=== PATIENT | female | born 1960 | race African-American/Black ===

== ENCOUNTER 2019-04-28 07:20 | Emergency (ER) | payer OTHER ==
[~2019-04-28] VITALS: Ht 175.3 cm; Wt 63.5 kg
[2019-04-28] MEDS ORDERED: TEGRETOL200 MG PO (07:24)
--- NOTE | 2019-04-28 07:35 | NUR ---
ED Nurse Note:pt. was BIBA from home qfter seizure
--- NOTE | 2019-04-28 07:40 | NUR ---
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
[2019-04-28] MEDS ORDERED: carBAMazepine 200mg tab ORAL ONE ×2 (07:45→08:45)
--- NOTE | 2019-04-28 07:57 | NUR ---
blood sent to labs and meds given
[2019-04-28 08:05] LABS: HEMOGLOBIN 12.1 G/DL (12.0-16.0); MEAN CORPUSCULAR VOLUME 92 FL (80-99); PLATELET COUNT 152 K/UL (150-450); RED BLOOD COUNT 3.92 M/UL (4.20-5.40); RED CELL DISTRIBUTION WIDTH 11.6 % (11.6-14.8)
[2019-04-28 08:09] VITALS: BP 132/89
--- NOTE | 2019-04-28 08:22 | Emergency Room Report ---
History of Present Illness General Chief Complaint: Seizure Source: Patient, EMS Present Illness HPI 58-year-old female presents ED status post seizure. Witnessed seizure at home while in bed this morning. Lasted for a few seconds then resolved. No reported head injury. Family called 911. Patient is postictal but answering questions. History of seizures. Takes Tegretol. States that she may have missed her dose last night. Denies alcohol or drug use. Denies fevers or chills. Denies headache. Denies neck stiffness. No other aggravating relieving factors. Denies any other associated symptoms Allergies: Coded Allergies: No Known Allergies (Unverified , 04/28/19) Patient History Past Medical History: seizures Past Surgical History: none Pertinent Family History: none Social History: Denies: smoking, alcohol use, drug use Now: No Immunizations: UTD Reviewed Nursing Documentation: PMH: Agreed; PSxH: Agreed Nursing Documentation-PMH Past Medical History: No History, Except For Hx Seizures: Yes Review of Systems All Other Systems: negative except mentioned in HPI Physical Exam Vital Signs Date Time Temp Pulse Resp B/P (MAP) Pulse Ox O2 Delivery O2 Flow Rate FiO2 04/28/19 07:16 98.4 107 18 132/89 (103) 99 Room Air Sp02 EP Interpretation: reviewed, normal General Appearance: no apparent distress, GCS 15, non-toxic, Postictal Head: normocephalic, atraumatic Eyes: bilateral eye normal inspection, bilateral eye PERRL ENT: hearing grossly normal, normal pharynx, no angioedema, normal voice Neck: full range of motion, supple/symm/no masses Respiratory: chest non-tender, lungs clear, normal breath sounds, speaking full sentences Cardiovascular #1: regular rate, rhythm, no edema Cardiovascular #2: 2+ carotid (R), 2+ carotid (L), 2+ radial (R), 2+ radial (L) , 2+ dorsalis pedis (R), 2+ dorsalis pedis (L) Gastrointestinal: normal bowel sounds, non tender, soft, non-distended, no guarding, no rebound Rectal: deferred Genitourinary: normal inspection, no CVA tenderness Musculoskeletal: back normal, gait/station normal, normal range of motion, non- tender Neurologic: alert, oriented x3, responsive, motor strength/tone normal, sensory intact, speech normal Psychiatric: judgement/insight normal, memory normal, mood/affect normal, no suicidal/homicidal ideation Reflexes: 3+ bicep (R), 3+ bicep (L), 3+ tricep (R), 3+ tricep (L), 3+ knee (R) , 3+ knee (L) Skin: normal color, no rash, warm/dry, well hydrated Lymphatic: no adenopathy Medical Decision Making Diagnostic Impression: Primary Impression: Seizure disorder Additional Impression: Seizure secondary to subtherapeutic anticonvulsant medication ER Course Hospital Course 58-year-old F presents to ED status post seizure. Differential diagnosis includes- breakthrough seizure, alcohol abuse, noncompliance with medication Clinical course Patient placed on stretcher. Initial history and physical I ordered labs, IV fluids Labs-electrolytes okay, no leukocytosis, hemoglobin/hematocrit stable. tegretol level subtherapeutic given loading dose of tegretol here in ED Patient allowed to rest is now awake alert oriented x3. ambulating without difficulty. Family is at bedside and can take patient home. discussed findings with patient. Discussed importance of compliance with her medications. Safe for discharge with close outpatient follow-up. States she has a PMD She no longer drives and is driven by her mother. Diagnosis - seizure disorder, subtherapeutic anticonvulsant medication stable and discharged to home. take your medications as directed. Followup with PMD. Return to ED if symptoms recur or worsen Labs Test 04/28/19 07:30 White Blood Count 3.0 K/UL (4.8-10.8) Red Blood Count 3.92 M/UL (4.20-5.40) Hemoglobin 12.1 G/DL (12.0-16.0) Hematocrit 36.0 % (37.0-47.0) Mean Corpuscular Volume 92 FL (80-99) Mean Corpuscular Hemoglobin 30.8 PG (27.0-31.0) Mean Corpuscular Hemoglobin Concent 33.5 G/DL (32.0-36.0) Red Cell Distribution Width 11.6 % (11.6-14.8) Platelet Count 152 K/UL (150-450) Mean Platelet Volume 6.3 FL (6.5-10.1) Neutrophils (%) (Auto) % (45.0-75.0) Lymphocytes (%) (Auto) % (20.0-45.0) Monocytes (%) (Auto) % (1.0-10.0) Eosinophils (%) (Auto) % (0.0-3.0) Basophils (%) (Auto) % (0.0-2.0) Differential Total Cells Counted 100 Neutrophils % (Manual) 41 % (45-75) Lymphocytes % (Manual) 45 % (20-45) Monocytes % (Manual) 7 % (1-10) Eosinophils % (Manual) 3 % (0-3) Basophils % (Manual) 4 % (0-2) Band Neutrophils 0 % (0-8) Platelet Estimate Adequate Platelet Morphology Normal Red Blood Cell Morphology Normal Sodium Level 145 MMOL/L (136-145) Potassium Level 3.0 MMOL/L (3.5-5.1) Chloride Level 114 MMOL/L (98-107) Carbon Dioxide Level 20 MMOL/L (21-32) Anion Gap 11 mmol/L (5-15) Blood Urea Nitrogen 7 mg/dL (7-18) Creatinine 0.8 MG/DL (0.55-1.30) Estimat Glomerular Filtration Rate > 60 mL/min (>60) Glucose Level 78 MG/DL (74-106) Calcium Level 6.7 MG/DL (8.5-10.1) Total Bilirubin 0.3 MG/DL (0.2-1.0) Aspartate Amino Transf (AST/SGOT) 15 U/L (15-37) Alanine Aminotransferase (ALT/SGPT) 10 U/L (12-78) Alkaline Phosphatase 71 U/L (46-116) Total Protein 5.0 G/DL (6.4-8.2) Albumin 3.0 G/DL (3.4-5.0) Globulin 2.0 g/dL Albumin/Globulin Ratio 1.5 (1.0-2.7) Salicylates Level 2.0 ug/mL (2.8-20) Acetaminophen Level 3 MCG/ML (10-30) Carbamazepine (Tegretol) Level < 2.0 ug/mL (4.0-12.0) Serum Alcohol < 3 mg/dL Last Vital Signs Date Time Temp Pulse Resp B/P (MAP) Pulse Ox O2 Delivery O2 Flow Rate FiO2 04/28/19 08:09 98.4 72 18 132/89 99 Room Air Status: improved Disposition: HOME, SELF-CARE Condition: Stable Referrals: NON PHYSICIAN (PCP) Neftali Jimenez MD Apr 28, 2019 08:22
[2019-04-28 08:29] LABS: ANION GAP 11 mmol/L (5-15); BLOOD UREA NITROGEN 7 mg/dL (7-18); CALCIUM 6.7 MG/DL (8.5-10.1); CARBON DIOXIDE 20 MMOL/L (21-32); CHLORIDE 114 MMOL/L (98-107); CREATININE 0.8 MG/DL (0.55-1.30); SODIUM 145 MMOL/L (136-145)
[2019-04-28 08:33] LABS: ALANINE AMINOTRANSFERASE 10 U/L (12-78); ALBUMIN/GLOBULIN RATIO 1.5 (1.0-2.7); ALKALINE PHOSPHATASE 71 U/L (46-116); ASPARTATE AMINO TRANSFERASE 15 U/L (15-37); BILIRUBIN,TOTAL 0.3 MG/DL (0.2-1.0)
[2019-04-28 09:11] VITALS: BP 107/71
[2019-04-28 09:13] VITALS: BP 107/71
--- NOTE | 2019-04-28 09:18 | NUR ---
ER DISCHARGE NOTE: Patient is cleared to be discharged per ERMD, pt is aox4, on room air, with stable vital signs. pt was given dc and prescription instructions, pt was able to verbalize understanding, pt id band and iv site removed without complications. pt is able to ambulate with steady gait. pt took all belongings, family member drove her home
== END 2019-04-28 14:00 | disposition home or self-care (01) ==
LOC: EDBD 07:20 → EMR 07:48
DX: G40.909 Epilepsy, unspecified, not intractable, without status epilepticus (principal)
CPT/HCPCS: 36415; 80053; 80156; 80329; 82962; 85007; 85025; 99284; J7040

== ENCOUNTER 2019-06-07 15:50 | Emergency (ER) | payer OTHER ==
[~2019-06-07] VITALS: Ht 177.8 cm; Wt 63.5 kg
[~2019-06-07 15:50] MED LIST: TEGRETOL200 MG PO
[2019-06-07] MEDS ORDERED: NKM (16:01)
[2019-06-07 16:03] VITALS: BP 109/79
--- NOTE | 2019-06-07 16:04 | NUR ---
ED Nurse Note: pt walked in to ER due to Rt rib pain 06/26. pt aao x4 and ambulatory. skin clean and intact. calm and cooperative.
--- NOTE | 2019-06-07 16:35 | NUR ---
ED Nurse Note: pt went to xray with tech
--- NOTE | 2019-06-07 16:44 | NUR ---
ED Nurse Note: pt went back from xray
[2019-06-07] MEDS ORDERED: HYDROcodone/Acetamin 5/325 tab ORAL ONE (17:15)
--- NOTE | 2019-06-07 17:27 | Diagnostic Imaging Report ---
Indication: Chest pain Technique: One view of the chest, 2 views of the right ribs Comparison: none Findings: There is evidence of prior right lung surgery. Surgical clips are also seen in the right chest wall. Lungs and pleural spaces are otherwise clear. No evidence of rib fracture. No evidence of pneumothorax Impression: Postsurgical changes as described No acute process Postsurgical changes, as described No acute bony trauma This agrees with the preliminary interpretation provided overnight by [facility] teleradiology service.
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
[2019-06-07] MEDS ORDERED: LIDODERM700 M1 TOPIC (17:45)
[2019-06-07] MEDS ORDERED: NORCO 5-325 TA1 EACH ORAL (17:45)
[2019-06-07 17:52] VITALS: BP 109/79
--- NOTE | 2019-06-07 17:52 | NUR ---
ER DISCHARGE NOTE: Patient is cleared to be discharged per ERMD, pt is aox4, on room air, with stable vital signs. pt was given dc and prescription instructions, pt was able to verbalize understanding, pt id band removed without complications. pt is able to ambulate with steady gait. pt took all belongings.
== END 2019-06-07 17:52 | disposition home or self-care (01) ==
LOC: EMR 16:30
DX: S20.211A Contusion of right front wall of thorax, initial encounter (principal); S61.214A Laceration without foreign body of right ring finger without damage to nail, initial encounter; S61.217A Laceration without foreign body of left little finger without damage to nail, initial encounter; Y04.2XXA Assault by strike against or bumped into by another person, initial encounter; Y92.9 Unspecified place or not applicable; G40.909 Epilepsy, unspecified, not intractable, without status epilepticus
CPT/HCPCS: 99283